=== PATIENT | male | born 1980 ===

== ENCOUNTER 2017-03-21 22:11 | Emergency (ER) | payer MEDICAID, OTHER ==
[2017-03-21 22:39] VITALS: BP 139/76; PULSE 98; RESP 16; TEMP 97.6; O2SAT 100
--- NOTE | 2017-03-22 01:34 | ED PDOC ---
Lower Extremity Pain/Injury Time Seen by Provider: 03/22/17 00:29 Chief Complaint (Nursing): Abnormal Skin Integrity Chief Complaint (Provider): right leg injury History Per: Patient History/Exam Limitations: no limitations Onset/Duration Of Symptoms: Hrs Current Symptoms Are (Timing): Still Present Additional History Per: Patient Additional Complaint(s): 36 y/o male presents with injury to right lower leg sustained prior to arrival. Patient states he was at the dumpster of a storage facility throwing something out when he fell in to what looked like a metal drain that was open. Patient states it was dark and he did not see it. Denies numbness/weakness right lower extremity, limitation fo movement. Tetanus up to date. Past Medical History Reviewed: Historical Data, Nursing Documentation, Vital Signs Vital Signs: Last Vital Signs Temp 97.6 F 03/21/17 22:36 Pulse 98 H 03/21/17 22:36 Resp 16 03/21/17 22:36 BP 139/76 03/21/17 22:36 Pulse Ox 100 03/21/17 22:36 - Medical History PMH: No Chronic Diseases - Surgical History Surgical History: No Surg Hx - Family History Family History: States: No Known Family Hx - Home Medications Home Medications: Ambulatory Orders Medication Instructions Recorded Bacitracin Ointment [Bacitracin] 1 applic TOP BID #1 tube 03/22/17 Ibuprofen [Motrin Tab] 1 tab PO Q6 PRN #20 tab 03/22/17 - Allergies Allergies/Adverse Reactions: Allergies Allergy/AdvReac Type Severity Reaction Status Date / Time No Known Allergies Allergy Verified 03/21/17 22:36 Review of Systems ROS Statement: Except As Marked, All Systems Reviewed And Found Negative Musculoskeletal: Positive for: Leg Pain Physical Exam - Reviewed Nursing Documentation Reviewed: Yes Vital Signs Reviewed: Yes - Physical Exam Appears: Positive for: Well, Non-toxic, No Acute Distress Head Exam: Positive for: ATRAUMATIC, NORMAL INSPECTION, NORMOCEPHALIC Extremity: Positive for: Normal ROM, Other (1cm circular puncture wound noted anterior-mid aspect right lower leg. No active bleeding, surrounding edema noted. No FB noted. Distal NV, motor intact. ). Negative for: Pedal Edema, Deformity, Swelling Neurologic/Psych: Positive for: Alert, Oriented. Negative for: Motor/Sensory Deficits - ECG O2 Sat by Pulse Oximetry: 100 - Other Rad xray right tib/fib X-Ray: Viewed By Me X-Ray Interpretation: no acute findings - Progress ED Course And Treament: xray, ibuprofen Wound irrigated with 250mL NS, bacitracin applied, bandaged. Patient educated on wound care, advised follow up PMD 2-3 days. Return precautions given. Disposition - Clinical Impression Clinical Impression: Puncture wound of right lower leg - Patient ED Disposition Is Patient to be Admitted: No Counseled Patient/Family Regarding: Studies Performed, Diagnosis, Need For Followup - Disposition Disposition: Routine/Home Disposition Time: 02:22 Condition: STABLE Prescriptions: Bacitracin Ointment [Bacitracin] 1 applic TOP BID #1 tube Ibuprofen [Motrin Tab] 1 tab PO Q6 PRN #20 tab PRN Reason: Pain, Moderate (4-7) Instructions: Puncture Wound (ED) Forms: Programmr (Macedonian)
--- NOTE | 2017-03-22 10:44 | RAD ---
PROCEDURE: Radiographs of the right tibia and fibula. HISTORY: puncture wound mid anterior aspect COMPARISON: None available. TECHNIQUE: Frontal and lateral views obtained. FINDINGS: BONES: No fracture or destructive lesion. JOINT SPACES: Unremarkable. OTHER FINDINGS: None. IMPRESSION: Unremarkable radiographs of the right tibia and fibula.
== END 2017-03-22 02:35 | disposition home or self-care (01) ==
LOC: H.ER 22:11
DX: S81.831A Puncture wound without foreign body, right lower leg, initial encounter (principal); W19.XXXA Unspecified fall, initial encounter; Y92.89 Other specified places as the place of occurrence of the external cause